=== PATIENT | female | born 1940 | race Caucasian/White ===

== ENCOUNTER → 2016-12-18 | Outpatient (CLI) | payer OTHER, BC ==
[~2016-12-18] MED LIST: ALEVE220 MG PO; ATIVAN1 MG; FLEXERIL PO; HYDROCODON-ACE1 EAC5 PO; HYDROCODON-ACE1 EAC7 PO; IBUPROFEN 200200 M1; KLOR-CON 1010 MEQ PO; LEVOTHROID125 MCG PO; LEVOXYL125 MCG PO; LISINOPRIL40 MG PO; METHOTREXATE 22.5 MG PO; MULTIVITAMINS PO; PREDNISONE 10 M10 M1 PO; PRILOSEC 20 MG20 MG PO; RECLAST 55 MG/100 M IV; TRAMADOL 50 MG50 MG PO; [UNRECOGNIZED DRUG - OTHER]
== END ==
LOC: RAD 11:19
DX: Z12.31 Encounter for screening mammogram for malignant neoplasm of breast (principal)

== ENCOUNTER → 2017-05-14 | Outpatient (CLI) | payer OTHER, BC | LOC: RAD 15:01 | DX: M25.511 Pain in right shoulder (principal) ==

== ENCOUNTER → 2017-08-25 | Outpatient (CLI) | payer OTHER, BC ==
[~2017-08-25] MED LIST changes: +ADULT ASPIRIN R81 MG PO; +ALBUTEROL2.5 MG/31 INH; +AMOX TR-K CLV1 EAC4 PO; +CINNAMON500 MG PO; +CO Q-10100 MG PO; +FISH OIL 1,001000 M2 PO; +GLUCOSAMINE &1 EACH PO; +K-DUR10 MEQ PO; +METHOTREXATE 22.5 M1 PO; +NEURONTIN 300300 M1 PO; +NORCO 10-325 T1 EACH PO; +OMEPRAZOLE40 MG PO; +PLAVIX 75 MG TA75 M1 PO; +PREDNISONE 5 MG5 MG PO; +PRINIVIL20 MG PO; +PROTONIX 20 MG20 M1 PO; +PROTONIX40 M1 PO; +TIROSINT125 MCG PO
== END ==
LOC: HYPER 08-13 06:50
DX: S81.801A Unspecified open wound, right lower leg, initial encounter (principal); L89.892 Pressure ulcer of other site, stage 2; I73.9 Peripheral vascular disease, unspecified; L97.521 Non-pressure chronic ulcer of other part of left foot limited to breakdown of skin; L84 Corns and callosities; M19.90 Unspecified osteoarthritis, unspecified site; I10 Essential (primary) hypertension; J45.909 Unspecified asthma, uncomplicated; Z86.73 Personal history of transient ischemic attack (TIA), and cerebral infarction without residual deficits; Z87.891 Personal history of nicotine dependence; Z72.89 Other problems related to lifestyle; X58.XXXA Exposure to other specified factors, initial encounter; Y99.8 Other external cause status; Y92.89 Other specified places as the place of occurrence of the external cause; Y93.89 Activity, other specified

== ENCOUNTER → 2017-09-01 | Outpatient (CLI) | payer OTHER, BC | LOC: HYPER 06:54 | DX: L89.892 Pressure ulcer of other site, stage 2 (principal); L97.511 Non-pressure chronic ulcer of other part of right foot limited to breakdown of skin; L97.521 Non-pressure chronic ulcer of other part of left foot limited to breakdown of skin; S81.801D Unspecified open wound, right lower leg, subsequent encounter; I10 Essential (primary) hypertension; I73.9 Peripheral vascular disease, unspecified; M20.41 Other hammer toe(s) (acquired), right foot; L84 Corns and callosities; M19.90 Unspecified osteoarthritis, unspecified site; J45.909 Unspecified asthma, uncomplicated; Z87.891 Personal history of nicotine dependence; Z86.73 Personal history of transient ischemic attack (TIA), and cerebral infarction without residual deficits; Z72.89 Other problems related to lifestyle; X58.XXXD Exposure to other specified factors, subsequent encounter ==

== ENCOUNTER → 2017-09-28 | Outpatient (CLI) | payer OTHER, BC | LOC: HYPER 06:55 | DX: S81.801D Unspecified open wound, right lower leg, subsequent encounter (principal); L97.521 Non-pressure chronic ulcer of other part of left foot limited to breakdown of skin; L89.892 Pressure ulcer of other site, stage 2; I73.9 Peripheral vascular disease, unspecified; L84 Corns and callosities; M20.41 Other hammer toe(s) (acquired), right foot; I73.00 Raynaud's syndrome without gangrene; I77.9 Disorder of arteries and arterioles, unspecified; M19.90 Unspecified osteoarthritis, unspecified site; J45.909 Unspecified asthma, uncomplicated; Z86.73 Personal history of transient ischemic attack (TIA), and cerebral infarction without residual deficits; Z87.891 Personal history of nicotine dependence; Z72.89 Other problems related to lifestyle; X58.XXXD Exposure to other specified factors, subsequent encounter ==

== ENCOUNTER → 2017-09-30 | Outpatient (CLI) | payer OTHER, BC ==
--- NOTE | ~2017-09-30 | EKG ---
[address] [address] ELECTROCARDIOGRAM REPORT Name: LAILA PRUITT [id number]: 09/30/17 Attend Phys: Javier Fabian MD Discharge: Date of : 40 Report #: [id number] THIS REPORT FOR: //name// [facility] Test Date: 2017-09-30 Test Time: 13:11:49 Pat Name: LAILA PRUITT Department: Room: Gender: F Applications Scientist: Jake ALEX : 1940 Requested By: Javier Fabian Order Number: [id number] MD: Measurements Intervals Stella Rate: 65 P: 28 FL: 159 QRS: -7 QRSD: 88 T: 106 QT: 425 QTc: 442 Interpretive Statements Sinus rhythm Inferior infarct, old Lateral leads are also involved No previous ECG available for comparison [email or web address] By: 1311 1311 Epiphany EpiphanyMD /EPI
== END ==
LOC: RAD 12:33
DX: J98.11 Atelectasis (principal)

== ENCOUNTER 2017-10-12 05:29 | Day surgery (SDC) | payer OTHER, BC ==
[~2017-10-12] VITALS: Ht 160 cm; Wt 54.0 kg
--- NOTE | ~2017-10-12 | S ---
[facility] [place] [address] SURGICAL PATH RPT PROCEDURE Name: LAILA PRUITT Room #: DEP [facility] M.R.#: [id number] Admission: 10/12/17 Date of : 40 Discharge: 10/12/17 Report #: [id number] Path Case #: [id number] PATHOLOGY REPORT COLLECTION DATE: 10/12/2017 RECEIVED DATE: 10/12/2017 SUBMITTING PHYS: Yung Blanchard, OTHER PHYS: Dr. Trevin Tran SPECIMEN(S) RECEIVED: A.Right 5th toe * * * * * * * * * * * * FINAL DIAGNOSIS: Right fifth toe, amputation: - Marked acute inflammation extending into underlying bone, consistent with the provided history. - Surgical margin of bone viable. (IUV:mml; 10/14/2017) PATHOLOGIST: Jyoti Hobbs M.D. REPORT ELECTRONICALLY SIGNED BY: Jyoti Hobbs M.D. DATE/TIME: 10/14/2017 15:38 * * * * * * * * * * * * GROSS PATHOLOGY: Received in formalin labeled "Laila Pruitt, right fifth toe," is a toe amputation specimen measuring 3.9 x 1.8 x 1.6 cm in greatest dimensions. The bone margin is smooth and concave in appearance, consistent with disarticulation. There is a nail present in the nail bed that is granular and yellow-brown appearance. There is a well-circumscribed, flaky and yellow-brown lesion noted on the dorsolateral epidermal surface measuring 0.7 x 0.5 cm that extends to within 0.9 cm of the soft tissue margin. Also noted on the epidermal surface are two well-circumscribed defects consistent with possible puncture wounds measuring 0.2 cm each in maximum dimension, one on the dorsomedial aspect and one on the lateral aspect. The surgical margin is inked black. A full-thickness cross section is submitted proximal to distal in cassettes A1 and A2, following decalcification. The dorsolateral lesion is submitted in cassette A3. 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 [facility] [address] [place] [address] PHONE: [phone] DIRECTOR: Cb Montanez M.D. * * * END OF REPORT * * *
[2017-10-12 11:41] LABS: CREATININE 0.9 mg/dL (0.6-1.0); POTASSIUM 3.5 mmol/L (3.5-5.1)
[2017-10-12 12:00] VITALS: BP 161/72
== END 2017-10-12 13:27 | disposition home or self-care (01) ==
LOC: TBA 05:29 → OR 05:29
PROVIDERS: Podiatrist
DX: M86.471 Chronic osteomyelitis with draining sinus, right ankle and foot (principal); M20.41 Other hammer toe(s) (acquired), right foot; M79.674 Pain in right toe(s); I10 Essential (primary) hypertension; M19.90 Unspecified osteoarthritis, unspecified site; K21.9 Gastro-esophageal reflux disease without esophagitis; E03.9 Hypothyroidism, unspecified; Z98.41 Cataract extraction status, right eye; Z87.891 Personal history of nicotine dependence; Z86.73 Personal history of transient ischemic attack (TIA), and cerebral infarction without residual deficits; Z98.42 Cataract extraction status, left eye; Z90.49 Acquired absence of other specified parts of digestive tract; Z98.890 Other specified postprocedural states; Z79.82 Long term (current) use of aspirin; Z79.899 Other long term (current) drug therapy; Z79.891 Long term (current) use of opiate analgesic; Z88.8 Allergy status to other drugs, medicaments and biological substances
CPT/HCPCS: 50010; 50101; 50331; 50386; 56527; 57091

== ENCOUNTER → 2017-12-21 | Outpatient (CLI) | payer OTHER, BC | LOC: RAD 01:16 | DX: Z12.31 Encounter for screening mammogram for malignant neoplasm of breast (principal) ==

== ENCOUNTER → 2018-01-20 | Outpatient (CLI) | payer OTHER, BC | LOC: HYPER 07:03 | DX: I70.245 Atherosclerosis of native arteries of left leg with ulceration of other part of foot (principal); L97.521 Non-pressure chronic ulcer of other part of left foot limited to breakdown of skin; I70.235 Atherosclerosis of native arteries of right leg with ulceration of other part of foot; L97.511 Non-pressure chronic ulcer of other part of right foot limited to breakdown of skin; L84 Corns and callosities; I10 Essential (primary) hypertension; I77.9 Disorder of arteries and arterioles, unspecified; I73.00 Raynaud's syndrome without gangrene; M20.41 Other hammer toe(s) (acquired), right foot; M19.90 Unspecified osteoarthritis, unspecified site; J45.909 Unspecified asthma, uncomplicated; Z86.73 Personal history of transient ischemic attack (TIA), and cerebral infarction without residual deficits; Z87.891 Personal history of nicotine dependence ==

== ENCOUNTER → 2018-02-16 | Outpatient (CLI) | payer OTHER, BC | LOC: HYPER 06:57 | DX: I70.245 Atherosclerosis of native arteries of left leg with ulceration of other part of foot (principal); L97.521 Non-pressure chronic ulcer of other part of left foot limited to breakdown of skin; I70.235 Atherosclerosis of native arteries of right leg with ulceration of other part of foot; L97.511 Non-pressure chronic ulcer of other part of right foot limited to breakdown of skin; L84 Corns and callosities; I10 Essential (primary) hypertension; I73.00 Raynaud's syndrome without gangrene; I77.9 Disorder of arteries and arterioles, unspecified; M19.90 Unspecified osteoarthritis, unspecified site; M20.41 Other hammer toe(s) (acquired), right foot; J45.909 Unspecified asthma, uncomplicated; Z86.73 Personal history of transient ischemic attack (TIA), and cerebral infarction without residual deficits; Z87.891 Personal history of nicotine dependence ==

== ENCOUNTER → 2018-03-16 | Outpatient (CLI) | payer OTHER, BC | LOC: HYPER 06:35 | DX: I70.245 Atherosclerosis of native arteries of left leg with ulceration of other part of foot (principal); L97.521 Non-pressure chronic ulcer of other part of left foot limited to breakdown of skin; L84 Corns and callosities; I10 Essential (primary) hypertension; I73.00 Raynaud's syndrome without gangrene; M20.41 Other hammer toe(s) (acquired), right foot; M19.90 Unspecified osteoarthritis, unspecified site; J45.909 Unspecified asthma, uncomplicated; Z86.73 Personal history of transient ischemic attack (TIA), and cerebral infarction without residual deficits; Z87.891 Personal history of nicotine dependence ==